=== PATIENT | female | born 1995 | race Caucasian/White ===

== ENCOUNTER 2022-05-09 08:47 | Emergency (ER) | payer OTHER ==
[2022-05-09 09:17] LABS: BASOPHILS % (AUTO) 0.6 %; EOSINOPHILS # (AUTO) 0.1 10^3/uL (0.0-0.7); EOSINOPHILS % (AUTO) 1.1 %; HCT - HEMATOCRIT 41.8 % (37.0-47.0); HGB - HEMOGLOBIN 13.8 g/dL (12.0-16.0); LYMPHOCYTES # (AUTO) 1.5 10^3/uL (1.5-3.5); LYMPHOCYTES % (AUTO) 32.9 %; MEAN CORPUSCULAR HEMOGLOBIN 30.8 pg (27.0-31.0); MEAN CORPUSCULAR VOLUME 93.3 fL (81.0-99.0); MEAN PLATELET VOLUME 9.3 fL (7.9-10.8); MONOCYTES # (AUTO) 0.3 10^3/uL (0.0-1.0); MONOCYTES % (AUTO) 6.5 %; NEUTROPHILS # (AUTO) 2.7 10^3/uL (1.5-6.6); NEUTROPHILS % (AUTO) 58.7 %; PLT - PLATELET COUNT 153 10^3/uL (130-450); RED BLOOD COUNT 4.48 10^6/uL (4.20-5.40); RED CELL DISTRIBUTION WIDTH 12.8 % (12.0-15.0); WHITE BLOOD COUNT 4.6 x10^3/uL (4.8-10.8)
[2022-05-09 09:30] LABS: ALBUMIN 4.6 g/dL (3.2-5.5); ALBUMIN/GLOBULIN RATIO 1.4 (1.0-2.2); BILIRUBIN,TOTAL 0.5 mg/dL (0.2-1.0); CALCIUM 8.9 mg/dL (8.5-10.3); CREATININE 0.7 mg/dL (0.4-1.0); POTASSIUM 3.9 mmol/L (3.5-5.0); TOTAL PROTEIN 7.9 g/dL (6.7-8.2)
[2022-05-09 09:34] LABS: BILIRUBIN,URINE NEGATIVE (NEGATIVE); GLUCOSE, URINE (UA) NEGATIVE (NEGATIVE); KETONES,URINE (UA) NEGATIVE (NEGATIVE); LEUKOCYTE ESTERASE, URINE NEGATIVE (NEGATIVE); NITRITE,URINE NEGATIVE (NEGATIVE); OCCULT BLOOD,URINE LARGE (NEGATIVE); PROTEIN,URINE NEGATIVE (NEGATIVE); UROBILINOGEN,URINE 0.2 (NORMAL) E.U./dL (NORMAL)
[2022-05-09 09:35] LABS: CLARITY,URINE SL. CLOUDY (CLEAR); HCG UR QUAL NEGATIVE
[2022-05-09 09:55] LABS: BACTERIA,URINE Few /HPF (None Seen); SQUAMOUS EPITHELIAL CELL,UR MANY Squamous (<= Few); WBC,URINE 0-3 /HPF (0-5)
--- NOTE | 2022-05-09 13:19 | ED Physician Documentation ---
PD HPI FEMALE - Stated complaint Stated Complaint: BLEEDING,MISCARRAGE - Chief complaint Chief Complaint: Abd Pain - History obtained from History obtained from: Patient - History of Present Illness Timing - onset: How many days ago (3) Timing - duration: Days (3) Timing - details: Gradual onset Pain level max: 5 Pain level max: 3 Associated symptoms: Pelvic pain (cramping), Vaginal bleeding. No: Fever, Chest/shoulder pain, Abdominal pain, Back pain, Vaginal pain, Vaginal discharge, Dysuria, Urinary frequency, Hematuria Contributing factors: No: Recently seen: Not recently seen - Additional information Additional information: 26-year-old female presents to the emergency department complaining of vaginal bleeding. This started on Sunday night. Approximately 2 days early for her normal menses. She states that there was a piece of tissue that passed in the toilet. She was unsure what it was but was concerned it could be a early embryo. She states that she has passed several more clots over the past 2 days. Decided to come in for evaluation. She is not on any contraception. She has never been before. Did not take a test at home. Nothing makes it better or worse. No lightheadedness, dizziness or chest pain. Review of Systems Ten Systems: 10 systems reviewed and negative Constitutional: denies: Fever, Chills GI: denies: Vomiting, Diarrhea Skin: denies: Rash Musculoskeletal: denies: Neck pain, Back pain Neurologic: denies: Headache PD PAST MEDICAL HISTORY - Past Medical History Past Medical History: No - Past Surgical History Past Surgical History: No - Present Medications Home Medications: Ambulatory Orders Medication Instructions Recorded Confirmed No Known Home Medications 05/09/22 05/09/22 - Allergies Allergies/Adverse Reactions: Allergies Allergy/AdvReac Type Severity Reaction Status Date / Time amoxicillin Allergy Anaphylaxis Verified 05/09/22 08:57 Penicillins Allergy Anaphylaxis Verified 05/09/22 08:57 - Living Situation Living Situation: reports: With family Living Arrangement: reports: At home - Social History Does the pt smoke?: No Does the pt drink ETOH?: No Does the pt have substance abuse?: No - Family History Family history: reports: Non contributory PD ED PE NORMAL - Vitals Vital signs reviewed: Yes - General General: Alert and oriented X 3, No acute distress, Well developed/nourished - HEENT HEENT: PERRL, Moist mucous membranes - Neck Neck: Supple, no meningeal sign - Cardiac Cardiac: RRR, Strong equal pulses - Respiratory Respiratory: No respiratory distress, Clear bilaterally - Abdomen Abdomen: Soft, Non tender, Non distended - Derm Derm: Warm and dry - Neuro Neuro: Alert and oriented X 3 - Psych Psych: Normal mood, Normal affect Results - Vitals Vitals: Vital Signs - 24 hr 05/09/22 08:57 Temperature 37.2 C Heart Rate 73 Respiratory 18 Rate Blood Pressure 113/75 O2 Saturation 100 Oxygen O2 Source Room air - Labs Labs: Laboratory Tests 05/09/22 05/09/22 05/09/22 09:10 09:13 09:13 WBC 4.6 L RBC 4.48 Hgb 13.8 Hct 41.8 MCV 93.3 MCH 30.8 MCHC 33.0 RDW 12.8 Plt Count 153 MPV 9.3 Neut # (Auto) 2.7 Lymph # (Auto) 1.5 Gaines # (Auto) 0.3 Eos # (Auto) 0.1 Baso # (Auto) 0.0 Absolute Nucleated RBC 0.00 Nucleated RBC % 0.0 Sodium 138 Potassium 3.9 Chloride 102 Carbon Dioxide 28 Anion Gap 8.0 BUN 15 Creatinine 0.7 Estimated GFR (MDRD) 102 Glucose 99 Calcium 8.9 Total Bilirubin 0.5 AST 18 ALT 15 Alkaline Phosphatase 62 Total Protein 7.9 Albumin 4.6 Globulin 3.3 Albumin/Globulin Ratio 1.4 Lipase 30 Urine Color YELLOW Urine Clarity SL. CLOUDY Urine pH 6.0 Ur Specific [place] >=1.030 H Urine Protein NEGATIVE Urine Glucose (UA) NEGATIVE Urine Ketones NEGATIVE Urine Occult Blood LARGE H Urine Nitrite NEGATIVE Urine Bilirubin NEGATIVE Urine Urobilinogen 0.2 (NORMAL) Ur Leukocyte Esterase NEGATIVE Urine RBC 11-25 H Urine WBC 0-3 Ur Squamous Epith Cells MANY Squamous H Urine Bacteria Few Ur Microscopic Review INDICATED Urine Culture Comments NOT INDICATED Urine HCG, Qual NEGATIVE - Rads (name of study) Pelvic ultrasound Radiology: Final report received, EMP read contemporaneously, See rad report (No abnormalities) PD MEDICAL DECISION MAKING - ED course Complexity details: reviewed results, re-evaluated patient, considered differential, d/w patient ED course: 26-year-old female with what appears to be menorrhagia. Negative test. Normal vital signs. Normal laboratory testing. Normal ultrasound. She states that she has not passed any clots since being here and that the bleeding has slowed. We will have her follow-up with her doctor for further care. Patient counseled regarding signs and symptoms for which I believe and urgent re-evaluation would be necessary. Patient with good understanding of and agree ment to plan and is comfortable going home at this time This document was made in part using voice recognition software. While efforts are made to proofread this document, sound alike and grammatical errors may occur. Departure - Departure Disposition: 01 Home, Self Care Clinical Impression: Menorrhagia with regular cycle Condition: Good Instructions: ED Bleeding Menstrual Heavy Follow-Up: Your,doctor As needed [Other] - Within 1 week Comments: Please follow-up with your doctor as needed for further care. Return if you worsen. Your ultrasound, urinalysis, laboratory testing are normal today. Your hCG, hormone, is also negative.
[2022-05-09 13:23] VITALS: BP 101/69
--- NOTE | 2022-05-09 14:14 | Ultrasound Report ---
PROCEDURE: Pelvic w/Transvag+Doppler Comp INDICATIONS: menorrhagia TECHNIQUE: Real-time scanning was performed of the pelvic organs, with image documentation. Additional endovagi nal scanning was necessary due to incomplete visualization of the adnexal and endometrial structures by transabdominal scanning. Doppler interrogation was performed of the ovaries bilaterally. COMPARISON: None. FINDINGS: No pathologic free abdominal or pelvic fluid. Uterus: Uterus is mildly enlarged in size at 8.4 x 3.8 x 5.5 cm. Heterogeneous myometrial echotextu re is noted. No discrete uterine fibroid is seen. The endometrium measures 6.4 mm in combined thickne ss. There is no endometrial mass or fluid. Ovaries: Right ovary measures 3.5 x 2.7 x 2.9 cm in size with a volume of 14.4 cc. Left ovary measur es 3.1 x 1.8 x 2.7 cm in size with a volume of 7.9 cc. No solid-appearing ovarian lesion is seen. Nor mal appearing arterial and venous waveforms are confirmed to each ovary.] Other: No free pelvic fluid. IMPRESSION: 1. Mildly enlarged uterus with heterogeneous myometrial echotexture. No discrete uterine fibroid is s een. 2. Normal-appearing bilateral ovaries. No evidence of ovarian torsion. 3. No endometrial mass or fluid. Reviewed by: Washington Marcus MD on 05/09/2022 2:13 PM PDT Approved by: Washington Marcus MD on 05/09/2022 2:13 PM PDT Station ID: [id number]
== END 2022-05-09 13:23 | disposition home or self-care (01) ==
LOC: ED 08:47
DX: N92.0 Excessive and frequent menstruation with regular cycle (principal)
CPT/HCPCS: 36415; 80053; 81001; 81003; 81025; 83690; 85025; 87086; 93975; 99282; 99284